=== PATIENT | female | born 1945 | race Caucasian/White ===

== ENCOUNTER 2018-02-08 23:07 | Inpatient (IN) | payer MEDICARE ==
[~2018-02-08 23:07] MED LIST: ISOVUE-370 76%-LOCM 1 ML ONE
--- NOTE | 2018-02-08 23:25 | CT ---
CT BRAIN WITHOUT CONTRAST 02/08/18 HISTORY: Stroke alert. Slurred speech. Left sided weakness. COMPARISON: None. FINDINGS: The exam is limited due to the patient's head tilted in the gantry. No acute hemorrhage. No large vol ume infarction. The calvarium is intact. The paranasal sinuses and mastoids are clear. IMPRESSION: Limited exam due to head tilt. No definite acute intracranial abnormality. Code CHIP Dodson, 11:20 p.m. POS: [facility]
[2018-02-08 23:56] LABS: INR-International Normal Ratio 1.1; PTT 28.3 SEC (22.9-36.1); Prothrombin Time 14.1 SEC (12.0-14.7)
[2018-02-08 23:59] LABS: Hemoglobin 14.2 g/dL (12.0-16.0); Mean Corpuscular HGB CONC 32.4 g/dL (32.0-36.0); Mean Corpuscular Hemoglobin 33.3 pg (27.0-31.0); Mean Platelet Volume 7.7 fL (7.4-10.4); Platelet Count 230 thou/uL (130-400); RBC Distribution Width 12.4 % (11.5-14.5); Red Blood Cell (RBC) Count 4.28 mill/uL (4.20-5.40); White Blood Cell (WBC) Count 16.7 thou/uL (4.8-10.8)
--- NOTE | 2018-02-09 00:01 | CT ---
CT ANGIOGRAM HEAD WITH CONTRAST CT ANGIOGRAM NECK WITH CONTRAST 02/08/18 HISTORY: Stroke protocol. Global aphasia. COMPARISON: CT brain without contrast same day. TECHNIQUE: CT angiogram of the head and neck performed after the intravenous administration of contrast. 3D rend ering provided. FINDINGS: Lung apices appear clear with only mild scarring. Thyroid is unremarkable. No adenopathy. Moderate degenerative changes of the cervical spine. Right vertebral artery is dominant. Both vertebral arteries are patent. Basilar artery is patent. Both common carotid arteries are patent. Using NASCET criteria, there is no hemodynamically significa nt stenosis of either internal carotid artery. There is approximately 20% narrowing of the left carot id bulb and proximal left internal carotid artery due to calcific and soft plaque. This is not hemody namically significant. The burns [place] is patent. No abnormal enhancing mass. Globes are normal. IMPRESSION: No hemodynamically significant stenosis, thrombosis or aneurysm formation. Dr. Ivory Rodriguez, 11:45 p.m. POS: [facility]
[2018-02-09 00:10] LABS: ALT (SGPT) 382 U/L (8-55); AST (SGOT) 386 U/L (5-34); Acetaminophen Less than 6.0 mcg/mL (10.0-30.0); Alcohol Less than 10 mg/dL (Less than 10); Alkaline Phosphatase 59 U/L (40-150); Anion Gap 27 mmol/L (10-20); BUN (Urea Nitrogen) 35 mg/dL (9.8-20.1); Calc. Creatinine Clearance 0 mL/min (70-130); Calcium 9.4 mg/dL (7.8-10.44); Carbon Dioxide 27 mmol/L (23-31); Chloride 93 mmol/L (98-107); Estimated GFR-MDRD 13; Globulin 3.2 g/dL (2.4-3.5); Glucose 169 mg/dL (83-110); Potassium 5.5 mmol/L (3.5-5.1); Protein, Total 7.2 g/dL (6.0-8.3); Salicylate Less than 8.0 mg/dL (15.0-30.0); Sodium 141 mmol/L (136-145)
[2018-02-09 00:11] LABS: CKMB 6.7 ng/mL (0-6.6); Troponin I 0.606 ng/mL (< 0.028)
[2018-02-09 00:13] LABS: Bilirubin Small (Negative); Blood, Urine Negative (Negative); Clarity CLOUDY (Clear); Glucose, Urine (Dipstick) Negative (Negative); Leukocyte Negative (Negative); Nitrite Negative (Negative); Protein, Urine (Dipstick) 30 mg/dL (Neg-Trace); Specific Gravity, Urine 1.017 (1.002-1.036); pH, Urine 5.5 (5.0-9.0)
[2018-02-09 00:14] LABS: Bacteria/HPF None Seen HPF (None Seen); RBC/HPF 0-3 HPF (0-3); Squamous Epithelial 0-3 HPF (0-3); WBC/HPF 0-3 HPF (0-3)
[2018-02-09] MEDS ORDERED: Succinylcholine Chloride 20 MG/ML 10 ml SYRINGE FS ONE (00:14)
[2018-02-09] MEDS ORDERED: EPINEPHrine 1 MG/10 ML Abboject SYRINGE ONE (00:14)
[2018-02-09 00:16] LABS: Pathc Cast-AUWi Flag 5.23 (0-2.49)
[2018-02-09] MEDS ORDERED: fentaNYL Citrate/PF 2,000 MCG in Sodium Chloride 0.9% 60 ML IV SCH (00:25)
[2018-02-09] MEDS ORDERED: Norepinephrine 8 MG/0.9% NS 250 ML ONE (00:29)
[2018-02-09 00:32] LABS: Oval Fat Bodies/HPF None Seen HPF (None Seen); Renal Epithelial None Seen HPF (0-3); Transitional Epithelial NONE SEEN HPF (0-3)
[2018-02-09 00:33] LABS: Other Casts/LPF None Seen LPF (0-3 Hyaline)
[2018-02-09 00:34] LABS: Amphetamine Detected (NotDetected); Medtox Reader # READER 4; Methamphetamine Detected (NotDetected); Opiate Screen Detected (NotDetected); Tricyclic Screen Detected (NotDetected)
[2018-02-09 00:35] LABS: Barbiturates Screen Not Detected (NotDetected); Benzodiazepine Screen Not Detected (NotDetected); Cocaine Metabolite Screen Not Detected (NotDetected); Medtox Control Line Valid? VALID (VALID); Methadone Not Detected (NotDetected); Oxycodone Screen Not Detected (NotDetected); Phencyclidine (PCP) Not Detected (NotDetected); THC/Cannabinoid Screen Not Detected (NotDetected)
[2018-02-09 00:41] LABS: Band 19 % (5-11); Lymphocytes 7 % (21-51); MDiff Complete? YES; Macrocytosis SLIGHT = 6-15 cells (100X) (0-5/hpf); Monocytes 3 % (0-10); Neutrophil 71 % (42-75); PLT Morphology Comment Appears Adequate
[2018-02-09] MEDS ORDERED: Rocuronium Bromide 50 MG/5 ML VIAL ONE ×2 (01:18→01:20)
[2018-02-09 01:57] LABS: CO2 Tension 36.5 mmHg (35.0-45.0)
[2018-02-09 01:58] LABS: Actual Bicarbonate (HCO3a) 17.7 mEq/L (22-28); Base Excess (BEa) -7.9 mEq/L (-2.0 to +3.0); O2 Tension (PaO2) 57.8 mmHg (> 70.0)
[2018-02-09 01:59] LABS: Carboxyhemoglobin (COHb) 0.4 gm% (0.0-3.0); Hemoglobin (Hb) 13.1 g/dL (12.0-16.0); Potassium - ABG Lab 4.4 mmol/L (3.70-5.30)
[2018-02-09 02:00] LABS: ALV-art Gradient 324.375 (0-20); Analyzer IN Cardio ER; Puncture Site RBA
[2018-02-09] MEDS ORDERED: Acetaminophen 325 MG Suppository PR PRN (03:01)
[2018-02-09] MEDS ORDERED: Senokot 8.6 MG TAB PO PRN (03:01)
[2018-02-09] MEDS ORDERED: Benzonatate 100 MG CAP PO PRN (03:01)
[2018-02-09] MEDS ORDERED: Nitroglycerin 0.4 MG TAB (25 Tab Bottle) SL PRN (03:01)
[2018-02-09] MEDS ORDERED: Bisacodyl 10 MG SUPP PR PRN (03:01)
[2018-02-09] MEDS ORDERED: Loratadine 10 MG TAB PO PRN (03:01)
[2018-02-09] MEDS ORDERED: Ondansetron HCl/PF 4 MG/2 ML Vial IVP PRN (03:01)
[2018-02-09] MEDS ORDERED: Norepinephrine 8 MG/0.9% NS 250 ML IVPB PRN (03:01)
[2018-02-09] MEDS ORDERED: Acetaminophen 325 MG TAB PO PRN (03:01)
[2018-02-09] MEDS ORDERED: traMADol HCl 50 MG TAB PO PRN (03:01)
[2018-02-09] MEDS ORDERED: cloNIDine 0.1 MG TAB PO PRN (03:01)
[2018-02-09] MEDS ORDERED: CCU Electrolyte Replacement 1 EACH IVPB SCH (03:01)
[2018-02-09] MEDS ORDERED: Mag-Al 1200 mg/1200 mg/30 ML UDCUP PO PRN ×2 (03:01)
[2018-02-09] MEDS ORDERED: hydrALAZINE 20 MG/ML VIAL SLOW IVP PRN (03:01)
[2018-02-09] MEDS ORDERED: Acetaminophen 650 MG Suppository PR PRN (03:01)
[2018-02-09] MEDS ORDERED: Bisacodyl 5 MG TAB PO PRN (03:01)
[2018-02-09] MEDS ORDERED: Diabetic Tussin 200 MG/10 ML UDCUP PO PRN (03:01)
[2018-02-09] MEDS ORDERED: Calcium Carbonate 500 MG ChewTAB PO PRN ×2 (03:01)
[2018-02-09] MEDS ORDERED: DISCONTINUE PREVIOUS NARCOTIC PAIN MEDICATIONS AND BENZODIAZEPINES FS SCH (03:12)
[2018-02-09] MEDS ORDERED: Lorazepam 2 MG/ML VIAL SLOW IVP PRN (03:12)
[2018-02-09] MEDS ORDERED: Potassium Chloride 40 MEQ in Premix Bag 1 BAG IVPB PRN (03:12)
[2018-02-09] MEDS ORDERED: Potassium Chloride 20 MEQ TAB PO PRN (03:12)
[2018-02-09] MEDS ORDERED: Potassium Chloride 40 MEQ in Sodium Chloride 0.9% 250 ML 250 ML IVPB PRN (03:12)
[2018-02-09] MEDS ORDERED: CCU ELECTROLYTE REPLACEMENT PROTOCOL FS PRN (03:12)
[2018-02-09] MEDS ORDERED: Potassium Phosphate 12 MMOL in Sodium Chloride 0.9% 250 ML 250 ML IV PRN (03:12)
[2018-02-09] MEDS ORDERED: Potassium Phosphate 15 MMOL in Sodium Chloride 0.9% 250 ML 250 ML IV PRN (03:12)
[2018-02-09] MEDS ORDERED: Propofol BOLUS 1,000 MG/100 ML VIAL IV PRN (03:12)
[2018-02-09] MEDS ORDERED: Potassium Phosphate 9 MMOL in Sodium Chloride 0.9% 100 ML IVPB PRN (03:12)
[2018-02-09] MEDS ORDERED: Propofol 1,000 MG/100 ML VIAL IV PRN (03:12)
[2018-02-09] MEDS ORDERED: Magnesium Oxide 400 MG TAB PO PRN ×2 (03:12)
[2018-02-09] MEDS ORDERED: Magnesium 2 GM/NS 0.9% 100 ML 2 GM in Premix Bag 1 BAG IVPB PRN (03:12)
[2018-02-09] MEDS ORDERED: Fentanyl BOLUS 250 ML IVPB PRN (03:12)
[2018-02-09] MEDS ORDERED: Ventilator Sedation Protocol 1 EACH FS SCH (03:15)
[2018-02-09 03:45] LABS: Troponin I 1.243 ng/mL (< 0.028)
[2018-02-09 03:55] LABS: Band 10 % (5-11); Lymphocytes 12 % (21-51); MDiff Complete? YES; Mean Corpuscular HGB CONC 33.6 g/dL (32.0-36.0); Mean Corpuscular Hemoglobin 33.9 pg (27.0-31.0); Mean Platelet Volume 7.6 fL (7.4-10.4); Monocytes 3 % (0-10); Neutrophil 75 % (42-75); PLT Morphology Comment Appears Adequate; Platelet Count 195 thou/uL (130-400); RBC Distribution Width 12.4 % (11.5-14.5); RBC Morphology Normal; Red Blood Cell (RBC) Count 3.83 mill/uL (4.20-5.40); White Blood Cell (WBC) Count 9.6 thou/uL (4.8-10.8)
[2018-02-09 03:56] LABS: ALT (SGPT) 679 U/L (8-55); AST (SGOT) 832 U/L (5-34); Albumin 3.3 g/dL (3.4-4.8); Alkaline Phosphatase 53 U/L (40-150); Anion Gap 24 mmol/L (10-20); BUN (Urea Nitrogen) 35 mg/dL (9.8-20.1); Bilirubin, Total 1.2 mg/dL (0.2-1.2); Calc. Creatinine Clearance 27 mL/min (70-130); Calcium 8.1 mg/dL (7.8-10.44); Carbon Dioxide 21 mmol/L (23-31); Chloride 101 mmol/L (98-107); Estimated GFR-MDRD 16; Globulin 2.6 g/dL (2.4-3.5); Glucose 192 mg/dL (83-110); Potassium 5.2 mmol/L (3.5-5.1); Protein, Total 5.9 g/dL (6.0-8.3); Sodium 141 mmol/L (136-145)
--- NOTE | 2018-02-09 05:30 | HP ---
DATE OF ADMISSION: 02/09/2018 PRIMARY CARE PHYSICIAN: None. CHIEF COMPLAINT: Altered mental status. HISTORY OF PRESENTING ILLNESS: Ms. Armstrong is a 73-year-old female with past medical history unknown except for shingles, who presented to the emergency room with above-mentioned complaint. History is mainly obtained by the chart review and discussion with the emergency room physician. The patient i s intubated and sedated at this time and no family is available at the time to provide any further hi story. According to the emergency room physician, EMS was called and the patient woke up from her nap with a ltered mental status and acting confused. She had global confusion with some aphasia and initially, she presented to the emergency room as a stroke alert. Prior to presentation, she was last seen norm al 5 hours ago when she went to take a nap. The patient's family gave history that she smokes metham phetamine and also abuses of the drugs and she last did it yesterday. Upon presentation to the emerg ency room, her blood pressure was low at 104/67, pulse of 63 and she was 93% on facemask. She was di fficult to arouse and was not following commands. Her EKG was concerning initially for ST elevation and acute CT. Repeat EKG was showing normal ST segments and T waves. This was discussed with the on -call converting operator, Dr. Harris by the ER physician. Her recommendation was that this is not an ST elev ation CT. The patient's troponin did come back elevated to 0.606 with a CK-MB of 6.7 and she was sta rted on heparin drip. Because of worsening somnolence, the patient required eventual intubation in the emergency room to ma intain her airway. She also underwent workup for CVA initially with a CT scan of the brain which was unremarkable and a CT angiogram of the head and neck which did not show any evidence of stenosis. Later, the patient's blood pressure dropped with systolic in the 90s over diastolic in the 50s and th en as low as 60s/40s. She was started on Levophed drip and was given IV fluids as well. Her laboratory examination showed leukocytosis with bandemia as well as hyperkalemia with a potassium of 5.5 and anion gap metabolic acidosis and acute renal failure with estimated GFR of 13. She had e levated liver enzymes with AST and ALT in the 300s range. Troponin as above 0.606. Her urinalysis s howed some hyaline casts and her urine drug screen was positive for opioids, tricyclics, amphetamines and methamphetamines. Plasma alcohol level less than 10. She is now being admitted to the critical care unit for hypotension and acute respiratory failure of unclear etiology, likely secondary to drug abuse. PAST MEDICAL HISTORY: Reported as shingles. . SOCIAL HISTORY: The patient lives with her family and abuses drugs, abuses methamphetamine. No smok ing history. FAMILY HISTORY: Unobtainable as the patient is currently intubated and sedated. ALLERGIES: Not available. CURRENT MEDICATIONS: None as per the ER records. REVIEW OF SYSTEMS: Unavailable due to the patient being intubated and sedated. LABORATORY DATA AND IMAGING: CBC shows WBCs at 16.7 with 19% bands, hemoglobin 14.2, platelet count 230. PT, PTT, INR within normal limits. ABG shows a pH of 7.3 with a pCO2 of 36 and pO2 of 57 on th e ventilator. Serum chemistry shows sodium 141, potassium 5.5, chloride 93, bicarb normal at 27, ani on gap 27, BUN 35, creatinine 3.53 sugar 169, AST 386, ALT 382, CK-MB of 6.7, initial troponin 0.606 with repeat troponin 1.243. TSH normal. Urinalysis shows hyaline casts. Urine drug screen po sitive for amphetamines, opiates, and tricyclics. CT scan of the brain by my review has no evidence to suggest any acute hemorrhage, infarction or mass effect. CT angiogram of the head and neck is neg ative for any stenosis. EKG by review shows some premature supraventricular complexes and incomplete right bundle branch block and right ventricular hypertrophy. Chest x-ray by my review shows placeme nt of the endotracheal tube at the gerald and no obvious pleural effusion except for mild left-sided pleural effusion and no pulmonary edema or infiltrate. PHYSICAL EXAMINATION: VITAL SIGNS: Upon presentation, blood pressure 104/67 with a pulse of 63, respirations 19, saturatin g 93% on face mask. Most recent vital signs, blood pressure 120/55, pulse of 52, respirations 20, te mperature 99.9, saturating 94% on ventilator. GENERAL: No acute distress. She is currently intubated and sedated in the CCU. HEENT: Mucous membrane is not examinable at the time because of the endotracheal tube. Pupils are m inimally reactive to light. Head is normocephalic, atraumatic. NECK: Supple without any lymphadenopathy, JVD or bruit. CHEST: Clear to auscultation without any wheezing, rales or rhonchi. CARDIOVASCULAR: Rate and rhythm is regular without any murmur, rubs or gallops. ABDOMEN: Obese, soft, nontender, nondistended with positive bowel sounds. EXTREMITIES: Free of any cyanosis, clubbing, or edema. NEUROLOGIC: Cannot be performed fully because of the intubated and sedated state. The patient is fl accid at this time. She withdraws to pain. SKIN: Free of any rashes or bruises. I feel warm and dry to touch. IMPRESSION AND PLAN: 1. Acute hypoxic respiratory failure. This is likely secondary to respiratory depression from exces sive drug abuse. The patient has been intubated and we will continue supportive care and request con sultation with Pulmonary Medicine in the morning, nebulizer and oxygen as needed. 2. Non-ST elevation myocardial infarction, likely acute coronary event due to amphetamine and metham phetamine abuse versus coronary artery disease. We will continue her on the heparin drip per cardiov ascular protocol that was started in the emergency room. We will also consult Cardiology in the [facility] and perform a transthoracic echocardiogram. 3. Hypotension, unclear whether this is septic versus hypovolemic versus cardiogenic shock. At this time, she is on Levophed and we will continue that for now. We will check cortisol level with facing baster jumpbasting labs. 4. Acute renal insufficiency, baseline kidney function is unknown. At this time, hypoperfusion inju ry is suspected. We will avoid any nephrotoxic medications, provide her with IV fluid hydration and recheck labs in the morning. 5. Hyperkalemia secondary to renal failure. We will recheck labs in the morning. 6. Elevated liver enzymes. Once again, the baseline is unknown. Suspect hypoperfusion liver injury versus drug abuse versus fatty liver versus other etiology. We can work this up further once the pa tient is more stable. 7. Altered mental status most likely secondary to excessive drug abuse versus cardiac or neurologica l event. At this time, CT angiogram of the head is negative. Currently the patient is sedated and i f she has neurological changes, we will perform an MRI of the brain. At this time, the priority is s tabilization. She has no hemorrhage on the CT scan of the brain and we will continue with heparin dr patterson for now. 8. Leukocytosis with bandemia. Sepsis cannot be ruled out, though there is no clear source of sepsi s at this time. We will send for urine culture and hold off on the antibiotics for now. 9. Code status: FULL CODE implied as the patient is already intubated. We will be further discusse d with the family once they are available. 10. Add deep venous thrombosis and gastrointestinal prophylaxis. 11. Add p.r.n. medication orders and CCU electrolyte protocol. DISPOSITION: Ms. Armstrong is currently being admitted to the hospital with hypotension and acute resp iratory failure of unclear etiology, as well as non-ST elevation myocardial infarction. Estimated le ngth of stay at this time is at least 2-3 midnights. Total time spent in taking care of this critically ill patient is 35 minutes.
[2018-02-09 06:09] LABS: Troponin I 1.657 ng/mL (< 0.028)
[2018-02-09] MEDS: Heparin 25,000 units/D5W 500 ML IVPB SCH (06:35)
[2018-02-09] MEDS: Heparin 10,000 UNITS/ 10 ML VIAL SLOW IVP SCH (06:37)
--- NOTE | 2018-02-09 08:01 | PDOC.PULCN ---
<Leonard Fajardo - Last Filed: 02/09/18 07:49> Pulmonology Consult: HPI - Date of Consult Date: 02/09/18 Time: 07:50 - Consult Details Reason for Consult: ICU admission, on vent - History of Present Illness HPI: DONNA HANCOCK is a 73 year-old F Patient was brought to the ER via EMS for AMS after she was found altered by her family. All history at this time was obtained from ED physician as no family was available for the admitting physician or at this time. She has no known significant medical hx other than shingles. On arrival to the ER she was initially worked up for CVA and was found to have a negative CT brain. Initial troponins were initially elevated and have continued to trend upward. She was also noted to have an elevated WBC count with left shift, this has since improved. In the ED, she was hypotensive and somnolent with O2 sats in the low 90s on facemask. She was intubated due to worsening somnolence and started on levophed Pulmonology Consult: ROS - Review of Systems ROS unobtainable: due to endotracheal tube Pulmonology Consult: PMH Source: other (ER and admitting physician) - Social History Drug Use History: amphetamines, other (opiates, tricyclics) Pulmonology Consult: Meds - Medications MAR Reviewed: Yes Medications: Current Medications Acetaminophen (Tylenol) 650 mg CO Q4H PRN PRN Reason: Headache/Fever or Pain Acetaminophen (Tylenol) 650 mg PO Q4H PRN PRN Reason: Headache/Fever or Pain Al Hydroxide/Mg Hydroxide (Maalox) 30 ml PO Q6H PRN PRN Reason: Heartburn or Indigestion Al Hydroxide/Mg Hydroxide (Maalox) 15 ml PO Q4H PRN PRN Reason: Heartburn or Indigestion Albuterol/Ipratropium (Duoneb) 3 ml NEB [id number] PRN PRN Reason: SOB &/or Wheezing Benzonatate (Tessalon) 100 mg PO Q4H PRN PRN Reason: Cough Bisacodyl (Dulcolax) 10 mg PO DAILYPRN PRN PRN Reason: Constipation Bisacodyl (Dulcolax) 10 mg CO Q24H PRN PRN Reason: Constipation Calcium Carbonate (Tums) 1,000 mg PO Q4H PRN PRN Reason: Heartburn or Indigestion Clonidine (Catapres) 0.1 mg PO Q4H PRN PRN Reason: Systolic BP > 160 Famotidine (Pepcid) 20 mg SLOW IVP DAILY LEW Guaifenesin (Robitussin Sf) 200 mg PO Q4H PRN PRN Reason: Cough Heparin Sodium (Porcine) (Heparin 1,000 Units/Ml (10 Ml)) 0 units SLOW IVP ASDIR LEW; Protocol Last Admin: 02/09/18 06:37 Dose: 4,000 unit Hydralazine HCl (Apresoline) 10 mg SLOW IVP Q4H PRN PRN Reason: Systolic BP > 170 Fentanyl Citrate 2,000 mcg/ (Sodium Chloride) 100 mls @ 0 mls/hr IV INF LEW; Protocol Stop: 02/09/18 12:26 Norepinephrine Bitartrate (Levophed) 250 mls @ 0 mls/hr IVPB PRN PRN; Protocol PRN Reason: To maintain MAP > 65 Sodium Chloride (Normal Saline 0.9%) 1,000 mls @ 75 mls/hr IV .[id number] LEW Heparin Sodium/Dextrose (Heparin 25,000 Units/D5w 500 Ml) 500 mls @ 0 mls/hr IVPB INF LEW; Protocol Last Admin: 02/09/18 06:35 Dose: 500 mls Fentanyl Citrate (Fentanyl Bolus) 250 mls @ 0 mls/hr IVPB PRN PRN PRN Reason: Breakthrough pain/agitation Stop: 03/11/18 03:12 Potassium Chloride 40 meq/ (Sodium Chloride) 270 mls @ 135 mls/hr IVPB ASDIR PRN PRN Reason: FOR SERUM K+ 2.5 - 3.5 Potassium Chloride 40 meq/ (Device) 100 mls @ 50 mls/hr IVPB ASDIR PRN PRN Reason: FOR SERUM K+ 2.5 - 3.5 Magnesium Sulfate 1 gm/ Sodium (Chloride) 102 mls @ 102 mls/hr IV PRN PRN PRN Reason: MAG LEVEL 1.4 - 2.0 Magnesium Sulfate 2 gm/ Device 100 mls @ 100 mls/hr IVPB ASDIR PRN PRN Reason: MAGNESIUM < 1.4 Potassium Phosphate 9 mmol/ (Sodium Chloride) 103 mls @ 25.75 mls/hr IVPB ASDIR PRN PRN Reason: Phosphate 1.0-1.8 Potassium Phosphate 12 mmol/ (Sodium Chloride) 254 mls @ 63.5 mls/hr IV ASDIR PRN PRN Reason: Serum phosphate 0.5-0.9 Potassium Phosphate 15 mmol/ (Sodium Chloride) 255 mls @ 63.75 mls/hr IV ASDIR PRN PRN Reason: Serum Phos < 0.5 Loratadine (Claritin) 10 mg PO DAILYPRN PRN PRN Reason: Sinus Symptoms Lorazepam (Ativan) 2 mg SLOW IVP Q1H PRN PRN Reason: Breakthrough agitation Stop: 03/11/18 03:12 Magnesium Oxide (Magnesium Oxide) 400 mg PO BIDPRN PRN PRN Reason: FOR SERUM MAG 1.4 - 2.0 Magnesium Oxide (Magnesium Oxide) 800 mg PO PRN PRN PRN Reason: FOR SERUM MAG < 1.4 Miscellaneous Medication (Ccu Electrolyte Replacement) 1 each IVPB ONE LEW Stop: 03/11/18 03:02 Miscellaneous Medication (Ventilator Sedation Protocol) 1 each FS ONE LEW Stop: 03/11/18 03:16 Miscellaneous Medication (Phos-Nak) 1 pkt PO TIDPRN PRN PRN Reason: FOR PHOS LEVEL 1.0 - 1.8 Miscellaneous Medication (Phos-Nak) 2 pkt PO TIDPRN PRN PRN Reason: FOR PHOS LEVEL 0.5 - 1.0 Morphine Sulfate (Morphine Sulfate) 2 mg SLOW IVP Q1H PRN PRN Reason: BREAKTHROUGH PAIN/AGITATION Stop: 03/11/18 03:12 Nitroglycerin (Nitrostat) 0.4 mg SL Q5MIN PRN PRN Reason: Chest Pain Discontinue Previous Narcotic Pain Medications And Benzodiazepines 1 each FS .ONE LEW Stop: 03/11/18 03:12 Ccu Electrolyte (Replacement Protocol) 0 each FS PRN PRN PRN Reason: FOR ELECTROLYTE REPLACEMENT Ondansetron HCl (Zofran) 4 mg IVP Q6H PRN PRN Reason: Nausea/Vomiting Pneumococcal 13-Valent Conj Vacc (Prevnar) 0.5 ml IM .ONCE ONE Stop: 02/11/18 09:01 Potassium Chloride (K-Dur) 40 meq PO ASDIR PRN PRN Reason: FOR SERUM K+ 2.5 - 3.5 Potassium Chloride (Klor-Con) 40 meq PER TUBE ASDIR PRN PRN Reason: FOR SERUM K+ 2.5-3.5 Propofol (Diprivan) 1,000 mg IV INF PRN; Protocol PRN Reason: TO ACHIEVE GOAL RASS Stop: 03/11/18 03:12 Propofol (Diprivan Bolus) 20 mg IV Q5MIN PRN PRN Reason: BREAKTHROUGH AGITATION Stop: 03/11/18 03:12 Senna (Senokot) 2 tab PO HSPRN PRN PRN Reason: Constipation Sodium Chloride (Flush - Normal Saline) 10 ml IVF Q12HR LEW Sodium Chloride (Flush - Normal Saline) 10 ml IVF PRN PRN PRN Reason: Saline Flush Tramadol HCl (Ultram) 50 mg PO Q4H PRN PRN Reason: Moderate Pain (4-6) - Allergies Allergies/Adverse Reactions: Allergies Allergy/AdvReac Type Severity Reaction Status Date / Time No Known Allergies Allergy Verified 02/09/18 04:11 Pulmonology Consult: PE - Physical Exam Deviation from normal: Intubated and sedated HEENT: sclera anicteric Deviation from normal: Pupils sluggish Cardiovascular: RRR, no significant murmur Respiratory: clear to auscultation anteriorly Gastrointestinal: soft, no distention, positive bowel sounds Musculoskeletal: no edema, pulses present Deviation from normal: Flexion with pain, spontaneous opening of eyes. No response to command -: GCS 8 Skin: no rash, normal turgor Pulmonology Consult: Results - Labs Result Diagrams: 02/09/18 03:27 02/09/18 03:27 - ABG Interpretation Attestation: I reviewed and interpreted this ABG. ABG Results: ABG pH 7.30 (7.35-7.45) L 02/09/18 01:47 ABG pCO2 36.5 mmHg (35.0-45.0) 02/09/18 01:47 ABG O2 Sat Calc/Araceli 86.8 % (94.0-98.0) L* 02/09/18 01:47 ABG Base Excess -7.9 mEq/L (-2.0 to +3.0) L 02/09/18 01:47 Interpretation: francisco blood gas (with metabolic acidosis) - EKG Data EKG shows normal: sinus rhythm (RBBB pattern), ST-T waves (T wave inversion in precordial leads) Rate: normal (63) - Radiology Interpretation CT scan - head Status: report reviewed by me (Limited study dt position. No acute abnormality CTA [place] - no thrombosis, stenosis, aneurysm) Chest x-ray Status: image reviewed by me (ET tube in place. Possible cardiomegally. No obvious acute process) Pulmonology Consult: A/P - Problem (1) Acute respiratory failure with hypoxia Current Visit: Yes Code(s): J96.01 - ACUTE RESPIRATORY FAILURE WITH HYPOXIA Status: Acute (2) NSTEMI (non-ST elevated myocardial infarction) Current Visit: Yes Code(s): I21.4 - NON-ST ELEVATION (NSTEMI) MYOCARDIAL INFARCTION Status: Acute (3) Toxic encephalopathy Current Visit: Yes Code(s): G92 - TOXIC ENCEPHALOPATHY Status: Acute (4) Multiple drug overdose Current Visit: Yes Code(s): T50.901A - POISONING BY UNSP DRUG/MEDS/BIOL SUBST , ACCIDENTAL, INIT Status: Acute (5) RAMÍREZ (acute kidney injury) Current Visit: Yes Code(s): N17.9 - ACUTE KIDNEY FAILURE, UNSPECIFIED Status : Acute (6) Hyperkalemia Current Visit: Yes Code(s): E87.5 - HYPERKALEMIA Status: Acute (7) Hyperglycemia Current Visit: Yes Code(s): R73.9 - HYPERGLYCEMIA, UNSPECIFIED Status: Acute (8) Macrocytosis Current Visit: Yes Code(s): D75.89 - OTHER SPECIFIED DISEASES OF BLOOD AND BLOOD-FORMING ORGANS Status: Acute (9) Hypotension Current Visit: Yes Status: Acute - Time Time: 50% of the time was spent in coordination of care (as documented) at patient's floor/unit and/or counseling patient. Time with Patient: greater than 50 minutes - Plan Plan: Acute hypoxic respiratory failure - likely secondary to drug over dose. Currently requiring 60% FiO2 and 10/5 of pressure support. Attempt to wean as mental status improves Hypotension - currently requiring 12 of levophed. Titrate down as tolerated. - Given improvement of WBC count without abx, this is unlikely related to sepsis and more likely to be associated with drug ingestion. RAMÍREZ - secondary to multi drug overdose and hypoperfusion - Continue IVF. Cr has improved since admission NSTEMI - Likely related to drug use and hypoperfusion - Troponins continue to trend upward. Heparin drip has been started. No ST changes on EKG, however there are T wave inversions on all precordial leads. - Cards is following Toxic encephalopathy secondary to drug use - UDS is positive for methamphetamine, amphetamine, opiates, and tricyclics. - Will treat other associated problems as metabolites clear. Hyperkalemia - secondary to RAMÍREZ. Continue to monitor Macrocytosis - not anemic. Unclear etiology at this time. Dispo: Guarded. Likely length of ICU stay is greater than 48 hours. <Jac Hernandez - Last Filed: 02/10/18 08:33> Pulmonology Consult: HPI - History of Present Illness HPI: DONNA HANCOCK is a 73 year-old F Pulmonology Consult: Meds - Medications Medications: Current Medications Acetaminophen (Tylenol) 650 mg CO Q4H PRN PRN Reason: Headache/Fever or Pain Acetaminophen (Tylenol) 650 mg PO Q4H PRN PRN Reason: Headache/Fever or Pain Last Admin: 02/09/18 23:35 Dose: 650 mg Al Hydroxide/Mg Hydroxide (Maalox) 30 ml PO Q6H PRN PRN Reason: Heartburn or Indigestion Al Hydroxide/Mg Hydroxide (Maalox) 15 ml PO Q4H PRN PRN Reason: Heartburn or Indigestion Albuterol/Ipratropium (Duoneb) 3 ml NEB [id number] PRN PRN Reason: SOB &/or Wheezing Benzonatate (Tessalon) 100 mg PO Q4H PRN PRN Reason: Cough Bisacodyl (Dulcolax) 10 mg PO DAILYPRN PRN PRN Reason: Constipation Bisacodyl (Dulcolax) 10 mg CO Q24H PRN PRN Reason: Constipation Calcium Carbonate (Tums) 1,000 mg PO Q4H PRN PRN Reason: Heartburn or Indigestion Clonidine (Catapres) 0.1 mg PO Q4H PRN PRN Reason: Systolic BP > 160 Famotidine (Pepcid) 20 mg SLOW IVP DAILY LEW Last Admin: 02/09/18 09:59 Dose: 20 mg Guaifenesin (Robitussin Sf) 200 mg PO Q4H PRN PRN Reason: Cough Heparin Sodium (Porcine) (Heparin 1,000 Units/Ml (10 Ml)) 0 units SLOW IVP ASDIR [facility]; Protocol Last Admin: 02/09/18 06:37 Dose: 4,000 unit Hydralazine HCl (Apresoline) 10 mg SLOW IVP Q4H PRN PRN Reason: Systolic BP > 170 Norepinephrine Bitartrate (Levophed) 250 mls @ 0 mls/hr IVPB PRN PRN; Protocol PRN Reason: To maintain MAP > 65 Sodium Chloride (Normal Saline 0.9%) 1,000 mls @ 75 mls/hr IV .[id number] LEW Last Admin: 02/10/18 06:11 Dose: 1,000 mls Heparin Sodium/Dextrose (Heparin 25,000 Units/D5w 500 Ml) 500 mls @ 0 mls/hr IVPB INF [facility]; Protocol Last Admin: 02/09/18 06:35 Dose: 500 mls Fentanyl Citrate (Fentanyl Bolus) 250 mls @ 0 mls/hr IVPB PRN PRN PRN Reason: Breakthrough pain/agitation Stop: 03/11/18 03:12 Potassium Chloride 40 meq/ (Sodium Chloride) 270 mls @ 135 mls/hr IVPB ASDIR PRN PRN Reason: FOR SERUM K+ 2.5 - 3.5 Potassium Chloride 40 meq/ (Device) 100 mls @ 50 mls/hr IVPB ASDIR PRN PRN Reason: FOR SERUM K+ 2.5 - 3.5 Magnesium Sulfate 1 gm/ Sodium (Chloride) 102 mls @ 102 mls/hr IV PRN PRN PRN Reason: MAG LEVEL 1.4 - 2.0 Magnesium Sulfate 2 gm/ Device 100 mls @ 100 mls/hr IVPB ASDIR PRN PRN Reason: MAGNESIUM < 1.4 Potassium Phosphate 9 mmol/ (Sodium Chloride) 103 mls @ 25.75 mls/hr IVPB ASDIR PRN PRN Reason: Phosphate 1.0-1.8 Potassium Phosphate 12 mmol/ (Sodium Chloride) 254 mls @ 63.5 mls/hr IV ASDIR PRN PRN Reason: Serum phosphate 0.5-0.9 Potassium Phosphate 15 mmol/ (Sodium Chloride) 255 mls @ 63.75 mls/hr IV ASDIR PRN PRN Reason: Serum Phos < 0.5 Loratadine (Claritin) 10 mg PO DAILYPRN PRN PRN Reason: Sinus Symptoms Lorazepam (Ativan) 2 mg SLOW IVP Q1H PRN PRN Reason: Breakthrough agitation Stop: 03/11/18 03:12 Magnesium Oxide (Magnesium Oxide) 400 mg PO BIDPRN PRN PRN Reason: FOR SERUM MAG 1.4 - 2.0 Magnesium Oxide (Magnesium Oxide) 800 mg PO PRN PRN PRN Reason: FOR SERUM MAG < 1.4 Miscellaneous Medication (Ccu Electrolyte Replacement) 1 each IVPB ONE LEW Stop: 03/11/18 03:02 Miscellaneous Medication (Ventilator Sedation Protocol) 1 each FS ONE LEW Stop: 03/11/18 03:16 Miscellaneous Medication (Phos-Nak) 1 pkt PO TIDPRN PRN PRN Reason: FOR PHOS LEVEL 1.0 - 1.8 Miscellaneous Medication (Phos-Nak) 2 pkt PO TIDPRN PRN PRN Reason: FOR PHOS LEVEL 0.5 - 1.0 Morphine Sulfate (Morphine Sulfate) 2 mg SLOW IVP Q1H PRN PRN Reason: BREAKTHROUGH PAIN/AGITATION Stop: 03/11/18 03:12 Nitroglycerin (Nitrostat) 0.4 mg SL Q5MIN PRN PRN Reason: Chest Pain Discontinue Previous Narcotic Pain Medications And Benzodiazepines 1 each FS .ONE LEW Stop: 03/11/18 03:12 Ccu Electrolyte (Replacement Protocol) 0 each FS PRN PRN PRN Reason: FOR ELECTROLYTE REPLACEMENT Ondansetron HCl (Zofran) 4 mg IVP Q6H PRN PRN Reason: Nausea/Vomiting Pneumococcal 13-Valent Conj Vacc (Prevnar) 0.5 ml IM .ONCE ONE Stop: 02/11/18 09:01 Potassium Chloride (K-Dur) 40 meq PO ASDIR PRN PRN Reason: FOR SERUM K+ 2.5 - 3.5 Potassium Chloride (Klor-Con) 40 meq PER TUBE ASDIR PRN PRN Reason: FOR SERUM K+ 2.5-3.5 Propofol (Diprivan) 1,000 mg IV INF PRN; Protocol PRN Reason: TO ACHIEVE GOAL RASS Stop: 03/11/18 03:12 Propofol (Diprivan Bolus) 20 mg IV Q5MIN PRN PRN Reason: BREAKTHROUGH AGITATION Stop: 03/11/18 03:12 Senna (Senokot) 2 tab PO HSPRN PRN PRN Reason: Constipation Sodium Chloride (Flush - Normal Saline) 10 ml IVF Q12HR LEW Last Admin: 02/09/18 21:10 Dose: 10 ml Sodium Chloride (Flush - Normal Saline) 10 ml IVF PRN PRN PRN Reason: Saline Flush Tramadol HCl (Ultram) 50 mg PO Q4H PRN PRN Reason: Moderate Pain (4-6) Pulmonology Consult: Results - Labs Result Diagrams: 02/10/18 05:00 02/10/18 05:00 - ABG Interpretation ABG Results: ABG pH 7.30 (7.35-7.45) L 02/09/18 01:47 ABG pCO2 36.5 mmHg (35.0-45.0) 02/09/18 01:47 ABG O2 Sat Calc/Araceli 86.8 % (94.0-98.0) L* 02/09/18 01:47 ABG Base Excess -7.9 mEq/L (-2.0 to +3.0) L 02/09/18 01:47 Pulmonology Consult: A/P - Time Time: 50% of the time was spent in coordination of care (as documented) at patient's floor/unit and/or counseling patient. Attending Addendum - Attending Addendum Date/Time: 02/10/1833 I personally evaluated the patient and discussed the management with Dr. Fajardo. I agree with the History, Examination, Assessment and Plan documented above with any addition or exceptions noted below. Critical care time: 30 minutes.
--- NOTE | 2018-02-09 09:29 | RAD ---
PORTABLE CHEST 1 VIEW: Date: 02/09/18 HISTORY: Respiratory failure. FINDINGS/IMPRESSION: No significant interval change is seen since earlier exam at 0015 hours from the same date. POS: HANNA
--- NOTE | 2018-02-09 09:45 | RAD ---
PORTABLE AP CHEST RADIOGRAPH: Date: 02-09-18 History: Altered mental status. Comparison: 08-14-13 FINDINGS: Endotracheal tube is noted in place, but the tip appears to be at the level of the gerald. Nasogastri c tube is noted in place which courses into the left upper quadrant, the tip of which is not seen. Th ere is bibasilar atelectasis noted. Patient is rotated limiting the evaluation of the mediastinal str uctures and cardiac silhouette. Vascular calcifications are seen in the thoracic aorta. There is incr eased density seen in the left hilar region which could be related to atelectasis as well. No other f indings. IMPRESSION: 1. Endotracheal tube noted in place with tip at the level of the gerald. The endotracheal tube should be withdrawn. There is increased density in the left hilar region and left lung base which is probab ly related to atelectasis. Follow up evaluation is suggested. 2. Nasogastric tube noted in place. POS: AZIZA
[2018-02-09] MEDS: Famotidine/PF 20 mg/2ml Vial SLOW IVP SCH (09:59)
[2018-02-09] MEDS: Sodium Chloride 0.9% 1,000 ML IV SCH ×2 (09:59→21:08)
--- NOTE | 2018-02-09 13:53 | CON ---
DATE OF CONSULTATION: 02/09/2018 CARDIOLOGY CONSULTATION REASON FOR CONSULTATION: Non-STEMI. HISTORY OF PRESENT ILLNESS: Ms. Armstrong is a 73-year-old white female who comes to the hospital for altered mentation. She was last seen normal about 5 hours prior before going to take a nap and when she woke up, she was confused and altered and eventually was brought into the ER and had to be intuba celina and sedated to protect her airway. On my evaluation, she is currently sedated, intubated and unr esponsive. She does open her eyes, but is not able to follow commands yet. Overnight, she was admit celina and an EKG was drawn and computer called the EKG read as having an inferior IA. This EKG was sen t to Dr. Harris overnight who was insulation power unit tender last night and she did not think the patient was having an ST elevation and I would have to agree with Dr. Harris. I saw her EKG this morning and it does not seem like an ST elevation IA. She did get troponins drawn and they were mildly elevated, so Cardiology is being consulted for this. Unknown if she has had any cardiac symptoms before, but the family does s willams that she smokes methamphetamines and abuses other types of drugs. PAST MEDICAL HISTORY: 1. Shingles in the past. 2. History of depression in the past. 3. Hypertension. SOCIAL HISTORY: No alcohol or tobacco, but positive drug use, methamphetamines and other drugs. FAMILY HISTORY: Noncontributory for this case. REVIEW OF SYSTEMS: Unable to obtain secondary to the patient being sedated and intubated. OUTPATIENT MEDICATIONS: 1. Gabapentin 300 mg p.o. t.i.d. 2. Clonazepam p.r.n. 3. Trazodone 50 mg p.r.n. 4. Simvastatin 20 mg q.p.m. 5. Ranitidine 150 mg b.i.d. 6. Seroquel. 7. Relafen. 8. Hydrochlorothiazide 25 mg a day. ALLERGIES: No known drug allergies. PHYSICAL EXAMINATION: VITAL SIGNS: Temperature 101.5 more recently. Heart rate 67, respiratory rate , satting 91% on 40% FIO2, blood pressure 144/38. GENERAL: Sedated and intubated. LUNGS: Clear. CARDIOVASCULAR: S1, S2. No S3, S4. No murmurs. ABDOMEN: Soft. Positive bowel sounds. EXTREMITIES: Trace edema. SKIN: Warm and dry. LABORATORY WORK: Reviewed. CBC with an elevated white count on admission, but better now at 9.6, he moglobin of 13, platelet count of 195,000. Coags were unremarkable. ABG was reviewed. Chemistries were reviewed. On admission, her creatinine was high at 3.5, down to 2.8 now. Potassium is 5.2. Tr oponin has been 0.6 to 1.2 to 1.6 with a CK-MB of 6.7, albumin of 3.3. TSH was 1.8, which is normal. Cortisol level was normal. Albumin of 4.0 down to 3.3. AST and ALT are elevated in the 300s, up t o the 832 for AST and 679 for ALT. UA was unremarkable. Toxicology positive for opiates, tricyclics , amphetamines and methamphetamines. IMAGING: CT of the brain was unremarkable. Chest x-ray were unremarkable. EKG was reviewed, no ST elevations. She has got diffuse T-wave inversions, which could go with a ACCOUNTING SYSTEM EXPERT depression and even a stroke. ASSESSMENT AND PLAN: 1. Non-ST elevation myocardial infarction: Most likely demand ischemia from her current altered men tation, which is most likely related to multidrug use. 2. Altered mentation: As above, likely related to multi-substance abuse. I do not think she is a c andidate for having outpatient clonazepam or antipsychotics or antidepressives. We will defer to [facility] for this. 3. Echocardiogram pending. Thank you for letting us participate in the care of your patient. We will follow.
[2018-02-10 05:50] LABS: Anion Gap 11 mmol/L (10-20); BUN (Urea Nitrogen) 24 mg/dL (9.8-20.1); Calc. Creatinine Clearance 62 mL/min (70-130); Calcium 8.1 mg/dL (7.8-10.44); Carbon Dioxide 30 mmol/L (23-31); Chloride 107 mmol/L (98-107); Estimated GFR-MDRD 43; Glucose 137 mg/dL (83-110); Potassium 3.5 mmol/L (3.5-5.1); Sodium 144 mmol/L (136-145)
[2018-02-10] MEDS: Sodium Chloride 0.9% 1,000 ML IV SCH (06:11)
[2018-02-10 06:29] LABS: Band 8 % (5-11); Hemoglobin 11.7 g/dL (12.0-16.0); Lymphocytes 16 % (21-51); MDiff Complete? YES; Mean Corpuscular HGB CONC 33.4 g/dL (32.0-36.0); Mean Corpuscular Hemoglobin 33.4 pg (27.0-31.0); Mean Platelet Volume 7.9 fL (7.4-10.4); Monocytes 1 % (0-10); Neutrophil 75 % (42-75); PLT Morphology Comment Appears Adequate; Platelet Count 174 thou/uL (130-400); RBC Distribution Width 12.6 % (11.5-14.5); White Blood Cell (WBC) Count 6.9 thou/uL (4.8-10.8)
[2018-02-10] MEDS: Famotidine/PF 20 mg/2ml Vial SLOW IVP SCH (08:38)
--- NOTE | 2018-02-10 08:42 | RAD ---
PORTABLE CHEST 1 VIEW: DATE: 02/09/18. TIME: 11:48 p.m. HISTORY: Respiratory failure. FINDINGS/IMPRESSION: No significant interval change is seen since earlier exam of same date obtained at 2:08 a.m. POS: HANNA
[2018-02-10] MEDS: Heparin 25,000 units/D5W 500 ML IVPB SCH (10:25)
--- NOTE | 2018-02-10 11:46 | PRG ---
DATE OF SERVICE: 02/10/2018 SERVICE: Pulmonary Medicine. INTERVAL HISTORY: Last night, the patient is self extubated. Otherwise, there has been no interval change to her condition. She does not have any chest pain, nausea, vomiting, fevers or chills curren tly. She does not have any shortness of breath and she has been weaned down to room air. There has been no other interval change to her condition. PHYSICAL EXAMINATION: VITAL SIGNS: Afebrile with T-max overnight of 101.2, pulse 68, blood pressure 125/46, respirations 1 7, saturation 91% on 2 liters nasal cannula. HEENT: Normocephalic, atraumatic. Sclerae are white, conjunctivae pink. Oral mucosa is moist witho ut lesions. LUNGS: Decent air entry. I do not appreciate any prolonged expiratory phase or wheezing. HEART: Normal rate, regular. ABDOMEN: Soft, nontender, nondistended. Bowel sounds are positive. MUSCULOSKELETAL: No cyanosis or clubbing. There is no pitting in the bilateral lower extremities. NEUROLOGIC: Grossly nonfocal. LABORATORY DATA: WBC 6.9, hemoglobin 11.7, platelets 174,000. Differential remains normal. INR 1.1 . PH 7.30, pCO2 36, pO2 58. Creatinine 1.22 and beautifully down trending, BUN 24. Basic metabolic profile is otherwise unremarkable. Cortisol level is 19. Troponin continues to trend upward gently . Urine drug screen is positive for opiates, TCA, amphetamine, and methamphetamine. Blood cultures x2 and urine culture remain unremarkable. IMAGING DATA: Echocardiogram demonstrates normal left ventricular size. Normal left ventricular fun ction. There is a little bit of diastolic dysfunction. RVSP is estimated at 30 mmHg. There is a di lated RV with reduced RV function with free wall akinesis consistent with rapid increase in pulmonary pressures. Acute pulmonary embolism is within the differential. Chest x-ray demonstrates endotracheal tube in good position. There is no acute cardiopulmonary abnor mality otherwise identified other than some blunting of left costophrenic angle. ASSESSMENT: 1. Acute hypoxic and hypercapnic respiratory failure, resolving. 2. Metabolic encephalopathy, resolving. 3. Non-ST elevation myocardial infarction. 4. Abnormal right ventricular signs on echocardiogram. DISCUSSION AND PLAN: We will go ahead and proceed with a CT PE protocol. We will look at the lungs and determine whether or not she has pneumonia. We will also be able to determine whether or not a P E is present. That being said, the patient is self extubated just fine yesterday. We get the Griffith catheter out, central line out, and get her into a chair a couple times daily. We will involve physi markos therapy and advance her diet. We will leave her on a heparin drip for the time being. From my p erspective, she is stable for transition to the telemetry unit.
--- NOTE | 2018-02-10 12:30 | PDOC.CTH ---
Cardiology Progress Note - Subjective She is now extubated. She denies any chest pain, tightness ,pressure, SOB. - Objective Vital Signs Temp Pulse Resp Pulse Ox 02/10/18 12:00 97.5 F L 02/10/18 08:09 97 02/10/18 08:00 98.9 F 68 20 96 02/10/18 04:00 98.8 F 97 02/10/18 02:00 14 Admit Weight 208 lb Weight 208 lb 8.917 oz 02/09/18 02/10/18 02/11/18 06:59 06:59 06:59 Intake Total 2824 395.2 Output Total 190 2675 345 Balance -190 149 50.2 - Physical Examination General/Neuro: alert & oriented x3, NAD Neck: no JVD present Lungs: CTA, unlabored respirations Heart: RRR Abdomen: NT/ND Extremities: other: (no edema) - Telemetry Telemetry Rhythm: NSR - Labs Result Diagrams: 02/10/18 05:00 02/10/18 05:00 Troponin/CKMB CK-MB (CK-2) 6.7 ng/mL (0-6.6) H* 02/08/18 23:42 Troponin I 1.657 ng/mL (< 0.028) H* 02/09/18 05:26 - Assessment/Plan 1. NSTEMI 2. AMS, likely metabolic encephalopathy 3. Substance abuse 4. Acute RV failure. 5. Acute on chronic renal failure. PLAN: - Need to rule out PE. - Continue Heparin drip until PE ruled out. Unlikely this was an ACS. - Counselled on cessation of methamphetamines and other substances. - OK from cardiac perspective to transfer to telemetry.
[2018-02-10] MEDS: 1/2 NS w/KCL 20 mEq 1,000 ML IV SCH (13:25)
--- NOTE | 2018-02-10 14:00 | NM ---
RADIONUCLIDE PERFUSION SCAN: HISTORY: Difficulty breathing. TECHNIQUE: A perfusion-only scan was performed following the intravenous administration of 6.1 mCi Technetium 99 m-MAA. Ventilation study cannot be obtained despite 2 attempts due to patient's inability to followi ng breathing instructions. FINDINGS: Correlation is made with the chest radiograph of the previous day. There is fairly homogeneous trace r distribution in the right lung. The left lung demonstrates a pleural-based wedge-shaped moderate t o large segmental perfusion defect in the superior segment of the left lobe. IMPRESSION: Segmental perfusion abnormality in the left lung. In the absence of ventilation scan, a probability for thromboembolism cannot be assigned. Further evaluation with CT pulmonary angiogram is recommende d. POS: [facility]
[2018-02-10 14:45] VITALS: BMI 36.9
--- NOTE | 2018-02-10 15:17 | CT ---
CT ANGIOGRAM NECK WITH CONTRAST 02/08/18 HISTORY: Stroke protocol. Global aphasia. COMPARISON: CT brain without contrast same day. TECHNIQUE: CT angiogram of the head and neck performed after the intravenous administration of contrast. 3D rend ering provided. FINDINGS: Lung apices appear clear with only mild scarring. Thyroid is unremarkable. No adenopathy. Moderate degenerative changes of the cervical spine. Right vertebral artery is dominant. Both vertebral arteries are patent. Basilar artery is patent. Both common carotid arteries CT ANGIOGRAM HEAD WITH CONTRAST are patent. Using NASCET criteria, there is no hemodynamically significant stenosis of either interna l carotid artery. There is approximately 20% narrowing of the left carotid bulb and proximal left int ernal carotid artery due to calcific and soft plaque. This is not hemodynamically significant. The [place] is patent. No abnormal enhancing mass. Globes are normal. IMPRESSION: No hemodynamically significant stenosis, thrombosis or aneurysm formation. Dr. Ivory Rodriguez, 11:45 p.m.
[2018-02-10] MEDS: Heparin 10,000 UNITS/ 10 ML VIAL SLOW IVP SCH (15:25)
--- NOTE | 2018-02-10 20:27 | PDOC.PN ---
- Subjective Encounter Start Date: 02/10/18 Encounter Start Time: 17:40 Subjective: [facility] encephalopathy and now self - -: extubation. UDS + meth. Overall feels ok currently. - Objective MAR Reviewed: Yes Vital Signs & Weight: Vital Signs (12 hours) Temp Pulse Resp BP Pulse Ox 02/10/18 18:30 98.0 F 73 18 164/72 H 100 02/10/18 16:00 98.1 F 02/10/18 12:00 97.5 F L Weight Admit Weight 208 lb Weight 208 lb 8.917 oz Most Recent Monitor Data Heart Rate from ECG 68 NIBP 126/55 NIBP BP-Mean 87 Respiration from ECG 23 SpO2 96 I&O: 02/09/18 02/10/18 02/11/18 06:59 06:59 06:59 Intake Total 2824 691.2 Output Total 190 2675 595 Balance -190 149 96.2 Result Diagrams: 02/10/18 05:00 02/10/18 05:00 Additional Labs: Microbiology 02/09/18 05:37 Central Line - Right Common Femoral Vein Blood Culture - Preliminary Specimen has been received and culture in progress. No Growth to date. 02/09/18 05:16 Central Line - Right Common Femoral Vein Blood Culture - Preliminary Specimen has been received and culture in progress. No Growth to date. 02/09/18 00:04 Urine clean catch Urine Culture - Preliminary NO GROWTH AT 24 HOURS Laboratory Tests 02/08/18 02/08/18 02/08/18 23:42 23:42 23:42 WBC 16.7 H Band Neuts % (Manual) 19 H Potassium Creatinine 3.53 H AST 386 H ALT 382 H Troponin I TSH 3rd Generation 1.8754 Cortisol Urine Opiates Screen Ur Tricyclics Screen Ur Amphetamines Screen U Methamphetamines Scrn 02/08/18 02/09/18 02/09/18 23:42 00:04 02:44 WBC Band Neuts % (Manual) Potassium Creatinine AST ALT Troponin I 0.606 H* 1.243 H* TSH 3rd Generation Cortisol Urine Opiates Screen Detected H Ur Tricyclics Screen Detected H Ur Amphetamines Screen Detected H U Methamphetamines Scrn Detected H 02/09/18 02/09/18 02/09/18 03:27 03:27 05:26 WBC 9.6 Band Neuts % (Manual) 10 Potassium 5.2 H Creatinine 2.83 H AST 832 H ALT 679 H Troponin I 1.657 H* TSH 3rd Generation Cortisol Urine Opiates Screen Ur Tricyclics Screen Ur Amphetamines Screen U Methamphetamines Scrn 02/09/18 02/10/18 05:26 05:00 WBC Band Neuts % (Manual) 8 Potassium Creatinine AST ALT Troponin I TSH 3rd Generation Cortisol 19.00 Urine Opiates Screen Ur Tricyclics Screen Ur Amphetamines Screen U Methamphetamines Scrn Radiology Reviewed by me: Yes (2D echo - EF 60-65%, Grade I/III diast dysfxn) EKG Reviewed by me: Yes (Tele - SR) Phys Exam - Physical Examination alert, responsive HEENT: PERRLA, sclera anicteric, oral pharynx no lesions Neck: no nodes, no JVD, supple, full ROM Respiratory: no wheezing, no rales, no rhonchi, clear to auscultation bilateral S1, S2 Cardiovascular: RRR, no significant murmur, no rub, gallop Gastrointestinal: soft, non-tender, no distention, positive bowel sounds Musculoskeletal: no edema, pulses present Neurological: normal sensation, moves all 4 limbs A x O x 2 Skin: no rash, normal turgor, cap refill <2 seconds Dx/Plan (1) Acute respiratory failure with hypoxia Code(s): J96.01 - ACUTE RESPIRATORY FAILURE WITH HYPOXIA Status: Acute Comment: s/p self-extubation successfully, O2 via NC (2) RAMÍREZ (acute kidney injury) Code(s): N17.9 - ACUTE KIDNEY FAILURE, UNSPECIFIED Status: Acute Comment: Likely due to cardiorenal syndrome, improving with modification to current meds , avoiding nephrotoxic meds and limiting contrast exposure (3) Multiple drug overdose Code(s): T50.901A - POISONING BY UNSP DRUG/MEDS/BIOL SUBST, ACCIDENTAL, INIT Status: Acute Comment: + meth, opiates and tricyclics, [facility] evaluation when stable (4) NSTEMI (non-ST elevated myocardial infarction) Code(s): I21.4 - NON-ST ELEVATION (NSTEMI) MYOCARDIAL INFARCTION Status: Acute Comment: Start ASA 325mg daily, check FLP in am (5) Toxic encephalopathy Code(s): G92 - TOXIC ENCEPHALOPATHY Status: Acute Comment: Likely due to polysubstance abuse/OD, improving, MR consult - Plan PT/OT, social service director, respiratory therapy, DVT proph w/SCDs Stable currently -: Continue pulmonary supportive mgmt -: ASA 325mg daily -: [facility] evaluation when stable -: AM lab: CMP, CBC * .
[2018-02-11 03:18] LABS: Hemoglobin 11.9 g/dL (12.0-16.0); Platelet Count 168 thou/uL (130-400)
[2018-02-11 03:49] LABS: ALT (SGPT) 434 U/L (8-55); AST (SGOT) 190 U/L (5-34); Alkaline Phosphatase 44 U/L (40-150); Anion Gap 13 mmol/L (10-20); BUN (Urea Nitrogen) 17 mg/dL (9.8-20.1); Bilirubin, Total 0.5 mg/dL (0.2-1.2); Calc. Creatinine Clearance 94 mL/min (70-130); Calcium 8.3 mg/dL (7.8-10.44); Carbon Dioxide 24 mmol/L (23-31); Cardiac Risk 4.1 (Less than 4.5); Chloride 108 mmol/L (98-107); Cholesterol 128 mg/dl (< 200 Desired); Estimated GFR-MDRD 70; Globulin 2.6 g/dL (2.4-3.5); Glucose 104 mg/dL (83-110); HDL Cholesterol 31 mg/dL (>60 Neg Risk); LDL Cholesterol, Calculated 69 mg/dL; Potassium 3.5 mmol/L (3.5-5.1); Protein, Total 5.6 g/dL (6.0-8.3); Sodium 141 mmol/L (136-145); Triglycerides 140 mg/dL (Less than 150)
[2018-02-11] MEDS: Aspirin 325 MG TAB PO SCH (08:45)
[2018-02-11] MEDS: 1/2 NS w/KCL 20 mEq 1,000 ML IV SCH (08:47)
[2018-02-11] MEDS: Famotidine/PF 20 mg/2ml Vial SLOW IVP SCH (08:47)
[2018-02-11] MEDS ORDERED: Prevnar 13-Val Conj/PF 0.5 ML SYRINGE IM ONE (09:00)
--- NOTE | 2018-02-11 12:23 | CT ---
CT ANGIO CHEST WITH CONTRAST: Multiple axial tomograms were obtained through the chest following an angio protocol with multiplanar reconstruction and 3D postprocessing. INDICATION: Respiratory failure. Assess for pulmonary embolus. FINDINGS: Pulmonary arteries show adequate enhancement. No evidence of pulmonary embolus identified. The lung rey show streaky atelectasis and/or infiltrate in both lung bases, more prominent on the right, possibly tiny right effusion. Mediastinum unremarkable. No adenopathy. Images through the upper abdomen unremarkable. IMPRESSION: 1. No evidence of pulmonary embolus. 2. Streaky bibasilar atelectasis/infiltrate. POS: [facility]
--- NOTE | 2018-02-11 14:53 | PRG ---
DATE OF SERVICE: 02/11/2018 SUBJECTIVE: This morning, she is awake, alert, responsive. PHYSICAL EXAMINATION: VITAL SIGNS: Sats are 90% on room air, respiration 22, temperature 98, blood pressure 143/72. CHEST: Reveals no wheezing or crackles. CARDIAC: Normal S1, S2, no gallops. ABDOMEN: Soft, without masses. IMPRESSION: 1. Status post respiratory failure, improved. 2. Morbid obesity with a small right pleural effusion. PLAN: At this stage, continue aggressive PT, neb treatments, supportive care.
--- NOTE | 2018-02-11 20:12 | PDOC.PN ---
- Subjective Encounter Start Date: 02/11/18 Encounter Start Time: 17:00 Subjective: f/u for encephalopathy, resp failure, polysubstance abuse. Overall feeling -: better. - Objective MAR Reviewed: Yes Vital Signs & Weight: Vital Signs (12 hours) Temp Pulse Pulse Resp BP BP Pulse Ox 02/11/18 16:20 98.6 F 65 22 H 136/72 96 02/11/18 11:45 61 147/72 H 02/11/18 11:35 98.0 F 61 22 H 143/72 H 95 02/11/18 08:30 98.6 F 72 20 131/59 L 95 Weight Admit Weight 208 lb Weight 205 lb 3.2 oz Most Recent Monitor Data Heart Rate from ECG 68 NIBP 126/55 NIBP BP-Mean 87 Respiration from ECG 23 SpO2 96 I&O: 02/10/18 02/11/18 02/12/18 06:59 06:59 06:59 Intake Total 2824 691.2 Output Total 2675 595 Balance 149 96.2 Result Diagrams: 02/11/18 03:09 02/11/18 03:09 Additional Labs: Microbiology 02/09/18 00:04 Urine clean catch Urine Culture - Final NO GROWTH AT 48 HOURS 02/10/18 00:19 Venous blood - Right Hand Blood Culture - Preliminary Specimen has been received and culture in progress. No Growth to date. 02/10/18 00:19 Venous blood - Left Arm Blood Culture - Preliminary Specimen has been received and culture in progress. No Growth to date. 02/09/18 05:37 Central Line - Right Common Femoral Vein Blood Culture - Preliminary Specimen has been received and culture in progress. No Growth to date. 02/09/18 05:37 Central Line - Right Common Femoral Vein Blood Culture - Preliminary NO GROWTH AT 48 HOURS 02/09/18 05:16 Central Line - Right Common Femoral Vein Blood Culture - Preliminary Specimen has been received and culture in progress. No Growth to date. 02/09/18 05:16 Central Line - Right Common Femoral Vein Blood Culture - Preliminary NO GROWTH AT 48 HOURS 02/09/18 00:04 Urine clean catch Urine Culture - Preliminary NO GROWTH AT 24 HOURS Laboratory Tests 02/08/18 02/08/18 02/08/18 23:42 23:42 23:42 WBC 16.7 H Band Neuts % (Manual) 19 H Potassium Creatinine 3.53 H AST 386 H ALT 382 H Alkaline Phosphatase Troponin I TSH 3rd Generation 1.8754 Cortisol Urine Opiates Screen Ur Tricyclics Screen Ur Amphetamines Screen U Methamphetamines Scrn 02/08/18 02/09/18 02/09/18 23:42 00:04 02:44 WBC Band Neuts % (Manual) Potassium Creatinine AST ALT Alkaline Phosphatase Troponin I 0.606 H* 1.243 H* TSH 3rd Generation Cortisol Urine Opiates Screen Detected H Ur Tricyclics Screen Detected H Ur Amphetamines Screen Detected H U Methamphetamines Scrn Detected H 02/09/18 02/09/18 02/09/18 03:27 03:27 05:26 WBC 9.6 Band Neuts % (Manual) 10 Potassium 5.2 H Creatinine 2.83 H AST 832 H ALT 679 H Alkaline Phosphatase Troponin I 1.657 H* TSH 3rd Generation Cortisol Urine Opiates Screen Ur Tricyclics Screen Ur Amphetamines Screen U Methamphetamines Scrn 02/09/18 02/10/18 02/10/18 05:26 05:00 05:00 WBC Band Neuts % (Manual) 8 Potassium Creatinine 1.22 H AST ALT Alkaline Phosphatase Troponin I TSH 3rd Generation Cortisol 19.00 Urine Opiates Screen Ur Tricyclics Screen Ur Amphetamines Screen U Methamphetamines Scrn 02/11/18 03:09 WBC Band Neuts % (Manual) Potassium Creatinine AST 190 H ALT 434 H Alkaline Phosphatase 44 Troponin I TSH 3rd Generation Cortisol Urine Opiates Screen Ur Tricyclics Screen Ur Amphetamines Screen U Methamphetamines Scrn Radiology Reviewed by me: Yes (CTA chest - no PE) EKG Reviewed by me: Yes (Tele - SR) Phys Exam - Physical Examination Constitutional: NAD HEENT: PERRLA, sclera anicteric, oral pharynx no lesions Neck: no nodes, no JVD, supple, full ROM diminished in bases Respiratory: no wheezing, no rales, clear to auscultation bilateral S1, S2 Cardiovascular: RRR, no significant murmur, no rub, gallop Gastrointestinal: soft, non-tender, no distention, positive bowel sounds Musculoskeletal: no edema, pulses present Neurological: normal sensation, moves all 4 limbs Psychiatric: A&O x 3 Skin: no rash, normal turgor, cap refill <2 seconds Dx/Plan (1) Acute respiratory failure with hypoxia Code(s): J96.01 - ACUTE RESPIRATORY FAILURE WITH HYPOXIA Status: Acute Comment: s/p self-extubation successfully, O2 via NC (2) RAMÍREZ (acute kidney injury) Code(s): N17.9 - ACUTE KIDNEY FAILURE, UNSPECIFIED Status: Acute Comment: Likely due to cardiorenal syndrome, improving with modification to current meds , avoiding nephrotoxic meds and limiting contrast exposure (3) Multiple drug overdose Code(s): T50.901A - POISONING BY UNSP DRUG/MEDS/BIOL SUBST, ACCIDENTAL, INIT Status: Acute Comment: + meth, opiates and tricyclics, [facility] evaluation when stable (4) NSTEMI (non-ST elevated myocardial infarction) Code(s): I21.4 - NON-ST ELEVATION (NSTEMI) MYOCARDIAL INFARCTION Status: Acute Comment: Start ASA 325mg daily, check FLP in am (5) Toxic encephalopathy Code(s): G92 - TOXIC ENCEPHALOPATHY Status: Acute Comment: Likely due to polysubstance abuse/OD, improving, [facility] consult - Plan PT/OT, 7th grade social studies teacher, out of bed/ambulate, DVT proph w/SCDs Stable overall -: CTA chest negative for PE -: OOB/ambulate with PT -: Continue IVF's another 24h then d/c -: D/C Heparin gtt * AM lab: H/H * [facility] consult in am
[2018-02-12] MEDS: 1/2 NS w/KCL 20 mEq 1,000 ML IV SCH ×2 (04:50→08:14)
[2018-02-12] MEDS: Aspirin 325 MG TAB PO SCH (08:13)
[2018-02-12] MEDS: Famotidine/PF 20 mg/2ml Vial SLOW IVP SCH (08:13)
--- NOTE | 2018-02-12 12:26 | PRG ---
DATE OF SERVICE: 02/12/2018 SUBJECTIVE: This morning, she is better. CAT scan did not show any pulmonary emboli, some nonspecif ic atelectatic changes. She has less cough and less shortness of breath. OBJECTIVE: VITAL SIGNS: Temperature 97, pulse 60, respirations 18, sats , blood pressure 140/71. CHEST: Minimal crackles. CARDIAC: Normal S1 and S2. No gallops. ABDOMEN: Soft, no masses. IMPRESSION: 1. Status post encephalopathy, improved. 2. Renal failure, better. 3. Respiratory failure, improved. PLAN: Continue aggressive PT and supportive care.
[2018-02-12 16:17] VITALS: BP 174/79; TEMP 97.9
--- NOTE | 2018-02-12 20:18 | DIS ---
DATE OF ADMISSION: 02/09/2018 DATE OF DISCHARGE: 02/12/2018 DISCHARGE DIAGNOSES: 1. Acute toxic metabolic encephalopathy secondary to polysubstance use, improved. 2. Status post acute respiratory failure with hypoxemia. 3. Acute kidney injury, multifactorial, resolving. 4. Multidrug overdose. 5. Suspected versus demand ischemia. CONSULTATIONS: Dr. Prater with Cardiology Service. Dr. Hernandez and Dr. Bustillo with Pulmonology Servic e. PERTINENT LABORATORY AND X-RAY FINDINGS: Potassium ranged between 3.5-5.5, creatinine ranged between 0.81-3.53, estimated GFR ranging between 13-70, AST ranged between 190-832. ALT ranged between 380- 679, troponin I ranged between 0.61-1.66. Serum cortisol level 19, total cholesterol 128, triglyceri teresita 140, HDL 31, LDL 69. CBC showed a white blood cell count ranging between 6.9-16.7, hemoglobin ra nged between 11.7-14.2. Urine drug screen dated 02/09/2018 positive for opiates, tricyclics, [place]phe[place], and methamphetamines. Plasma alcohol level less than 10. Blood cultures x2 dated 02/09/2018 showed no growth at 48 hours. Blood cultures x2 from 11/10/2017 showed no growth at 48 hours. Urine culture dated 02/09/2018 showed no growth at [address] of the brain without contrast dated 02/08 showed no acute intracranial process. CT angiogram of [place] dated 02/08/2018 showed no focal stenosis, thrombosis or aneurysm. Portable chest x-ray dated 02/09/2018 showed no acute ca rdiopulmonary process. A 2D transthoracic echocardiogram dated 02/09/2018 showed ejection fraction o f 60% to 65%. Grade I/III diastolic dysfunction. Moderate tricuspid valve regurgitation. Ventilati on perfusion study dated 02/10/2018 showed segmental perfusion abnormality in the left lung. CT gerson ogram of the chest dated 02/11/2018 showed no evidence for pulmonary embolus. Bibasilar atelectasis. HOSPITAL COURSE: The patient was admitted initially to the Critical Care Unit after presenting with altered mental status. The patient was intubated in the emergency room for airway protection and und erwent extensive evaluation including multiple imaging studies and metabolic assessment. The patient 's urine drug screen was positive for meth and phentermines with polysubstance abuse, suspected. The patient was monitored in the Critical Care Unit on mechanical ventilation with subsequent extubation and approximately 24-36 hours. The patient was noted with mild elevation of troponin I. prompting a Cardiology evaluation, undergoing initial heparin infusion in addition to daily aspirin. A 2D trans thoracic echocardiogram was performed showing overall preserved ejection fraction in the 60% range wi th grade I/III diastolic dysfunction. No specific aggressive intervention was recommended. Medical management continue through the remainder of the hospital course. The patient was transferred to the telemetry unit for further evaluation after a ventilation perfusion study performed to rule out pulm onary embolus was equivocal. CT angiogram of the chest was performed showing no evidence of pulmonar y embolus. The patient's heparin infusion was subsequently discontinued and patient remained clinica lly stable. Due to patient's positive urine drug screen for methamphetamines, the patient was evalua celina by the [facility] Service, who deemed the patient safe for return to home. Overall, patient did remain clinically stable through the hospital course with telemetry monitoring showing sinus mechanism with out acute arrhythmia or dysrhythmia. I have examined the patient at the time of discharge and discus sed followup instructions, which patient and family verbalized understanding and agreement. The pat ient overall clinically stable and ready for discharge 02/12/2018. DISCHARGE MEDICATIONS: 1. Clonazepam 2 mg p.o. daily. 2. Gabapentin 300 mg p.o. t.i.d. 3. Hydrochlorothiazide 25 mg p.o. daily. 4. Relafen 500 mg p.o. b.i.d. 5. Seroquel 100 mg p.o. at bedtime. 6. Ranitidine 150 mg p.o. daily. 7. Simvastatin 20 mg p.o. at bedtime. 8. Trazodone 50 mg p.o. daily p.r.n. 9. Enteric coated aspirin 81 mg p.o. daily. FOLLOWUP: Patient may follow up with her primary care provider, Dr. Harman Edmond within 7 days of discharge. CONDITION ON DISCHARGE: Stable. ACTIVITY: Ad emile. DIET: Heart healthy. CODE STATUS: FULL. DISPOSITION: Home 02/12/2018. Total time preparing and coordinating discharge 32 minutes.
== END 2018-02-12 16:15 | disposition home or self-care (01) | DRG 917 ==
LOC: ERS 23:07 → EDBD 23:07 → CCU 02-09 03:18 → 2NO 02-10 18:05
PROVIDERS: ADMIT Internal Medicine; ATTEND Internal Medicine
PROC: 0BH17EZ Insertion of Endotracheal Airway into Trachea, Via Natural or Artificial Opening (ICD-10-PCS; principal; 2018-02-09)
PROC: 5A1945Z Respiratory Ventilation, 24-96 Consecutive Hours (ICD-10-PCS; 2018-02-09)
PROC: 06HY33Z Insertion of Infusion Device into Lower Vein, Percutaneous Approach (ICD-10-PCS; 2018-02-09)
DX: T43.621A Poisoning by amphetamines, accidental (unintentional), initial encounter (principal); G92 Toxic encephalopathy; J96.01 Acute respiratory failure with hypoxia; J96.02 Acute respiratory failure with hypercapnia; K72.00 Acute and subacute hepatic failure without coma; E87.2 Acidosis; N17.9 Acute kidney failure, unspecified; I24.8 Other forms of acute ischemic heart disease; I13.0 Hypertensive heart and chronic kidney disease with heart failure and stage 1 through stage 4 chronic kidney disease, or unspecified chronic kidney disease; E87.5 Hyperkalemia; E66.01 Morbid (severe) obesity due to excess calories; Y92.009 Unspecified place in unspecified non-institutional (private) residence as the place of occurrence of the external cause; I95.2 Hypotension due to drugs; I50.811 Acute right heart failure; N18.9 Chronic kidney disease, unspecified; T40.601A Poisoning by unspecified narcotics, accidental (unintentional), initial encounter; T43.011A Poisoning by tricyclic antidepressants, accidental (unintentional), initial encounter; R73.9 Hyperglycemia, unspecified; D75.89 Other specified diseases of blood and blood-forming organs; Z78.1 Physical restraint status; Z68.36 Body mass index [BMI] 36.0-36.9, adult
CPT/HCPCS: 31500; 36415; 36416; 36556; 51702; 70450; 70496; 70498; 71045; 71275; 78582; 80048; 80053; 80061; 80306; 80307; 81003; 81015; 82533; 82553; 82805; 84443; 84484; 85014; 85018; 85025; 85049; 85610; 85730; 87040; 87086; 90471; 90670; 93306; 94002; 94003; 94760; 96365; 96366; 96375; A4216; A9540; A9558; C1769; G0009; G8978-GP-CI; G8979-GP-CI; G8980-GP-CI; J0171; J1644; J2405; J3010; J7050; S0028